=== PATIENT | female | born 1995 ===

== ENCOUNTER 2019-10-30 22:04 | Inpatient (IN) | payer OTHER, SELFPAY ==
[2019-10-31 01:17] VITALS: BMI 22.1
[2019-10-31] MEDS ORDERED: Ondansetron PF 4 MG/2 ML Vial IVP PRN (02:51)
[2019-10-31] MEDS ORDERED: Morphine 4 MG/ML VIAL SLOW IVP PRN (02:51)
--- NOTE | 2019-10-31 03:44 | PDOC.HHP ---
Hospitalist HPI - History of Present Illness mouth pain History of Present Illness: case of an 24y/o female with no pmhx of chronic conditions who comes to hospital transfer from [facility] for an ENT evaluation due to an subperiosteal abscess. patient refers she was on her usual state of health until today when she wake up she had severe swelling and pain on her right lower jaw for which she went to [facility]. there patient had a head ct wich showed and an abscess in the subperiosteal area. dr glynn was called and agreed to see patient as a consumer services consultant for which patient was transfered to this institution for further evaluation and management. patient denies fever chills nause and vomting. Before transfer patient was covid tested and was positive. Hospitalist ROS - Review of Systems All other systems reviewed; all pertinent +/- noted in HPI/Subj - Medication Medications: Active Medications Generic Name Dose Route Start Last Admin Trade Name Freq PRN Reason Stop Dose Admin Morphine Sulfate 4 mg 10/31/19 02:51 10/31/19 03:05 Morphine SLOW IVP 4 mg Q4H PRN Administration Moderate to Severe Pain (6-10) Ondansetron HCl 4 mg 10/31/19 02:51 10/31/19 03:05 Zofran IVP 4 mg Q6H PRN Administration Nausea Hospitalist History - Past Medical History Source: patient - Past Surgical History Past Surgical History: reports: no pertinent history - Family History Family History: reports: no pertinent history - Social History Smoking Status: Current every day smoker Alcohol: reports: Occassional Drugs: reports: none Living Situation: With Family - Exam General Appearance: NAD, awake alert Eye: PERRL, anicteric sclera ENT: normocephalic atraumatic ENT - other findings: r jaw tender to palpation with significant swelling Neck: supple Heart: RRR, no murmur, no gallops Respiratory: CTAB, no wheezes, no rales Gastrointestinal: soft, non-tender, non-distended, normal bowel sounds Extremities: no cyanosis, no clubbing, no edema Skin: normal turgor, no lesions, no rashes Neurological: cranial nerve grossly intact, normal sensation to touch Musculoskeletal: normal tone, normal strength, no muscle wasting Psychiatric: normal affect, normal behavior, A&O x 3 Hospitalist Results - Radiology Interpretation CT scan - head Additional Comment: right pre- mandibular soft tissue swelling secondary to dentral device subperiosteal abscess Hospitalist H&P A/P - Problem (1) Subperiosteal abscess of jaw Code(s): M27.2 - INFLAMMATORY CONDITIONS OF JAWS Status: Acute (2) COVID-19 Code(s): U07.1 - COVID-19 Status: Acute - Plan Plan: 24y/o fem with periosteal abscess transder to ent evaluation subperiosteal abscess - ent dr glynn consulted - zosyn - pain management -ivfs - npo possible drainage tomorrow am - ct consistent with abscess covid 19 - incidental finding - seems to be asymptomatic - isolation protocol started
[2019-10-31] MEDS ORDERED: Sodium Chloride 0.9% 1,000 ML IV SCH (05:15)
[2019-10-31] MEDS: Ketorolac Tromethamine 30 MG/ML VIAL IVP SCH ×4 (05:55→23:40)
[2019-10-31] MEDS: Piperacillin/Tazobactam 3.375 GM in Sodium Chloride 0.9% 100 ML IVPB SCH ×4 (05:56→23:40)
[2019-10-31 06:36] LABS: #Lymphocytes 1.3 thou/uL (1.20-3.40); #Monocytes 0.7 thou/uL (0.11-0.59); #Neutrophils 4.2 thou/uL (1.40-6.50); %Basophils 0.3 % (0.0-1.0); %Eosinophils 0.3 % (0.0-10.0); %Lymphocytes 21.3 % (21.0-51.0); %Monocytes 11.2 % (0.0-10.0); %Neutrophils 66.9 % (42.0-75.0); Hemoglobin 12.3 g/dL (12.0-16.0); Mean Corpuscular HGB CONC 33.3 g/dL (32.0-36.0); Mean Corpuscular Hemoglobin 31.3 pg (27.0-31.0); Mean Platelet Volume 9.7 fL (7.4-10.4); Platelet Count 178 thou/uL (130-400); RBC Distribution Width 11.5 % (11.5-14.5); Red Blood Cell (RBC) Count 3.94 mill/uL (4.20-5.40); White Blood Cell (WBC) Count 6.2 thou/uL (4.8-10.8)
[2019-10-31 07:04] LABS: ALT (SGPT) 8 U/L (8-55); AST (SGOT) 12 U/L (5-34); Albumin 3.7 g/dL (3.5-5.0); Alkaline Phosphatase 66 U/L (40-110); Anion Gap 11 mmol/L (10-20); BUN (Urea Nitrogen) 5 mg/dL (7.0-18.7); Bilirubin, Total 0.2 mg/dL (0.2-1.2); Calc. Creatinine Clearance 104 mL/min (70-130); Calcium 8.7 mg/dL (7.8-10.44); Carbon Dioxide 21 mmol/L (22-29); Chloride 107 mmol/L (98-107); Estimated GFR-MDRD Greater than 90; Glucose 97 mg/dL (70-105); Potassium 3.5 mmol/L (3.5-5.1); Protein, Total 6.7 g/dL (6.0-8.3); Sodium 135 mmol/L (136-145)
[2019-10-31] MEDS ORDERED: Acetaminophen 325 MG TAB PO PRN (09:59)
[2019-10-31] MEDS ORDERED: Senokot S 8.6-50 MG TAB PO PRN (09:59)
[2019-10-31] MEDS ORDERED: Calcium Carbonate 500 MG ChewTAB PO PRN (09:59)
[2019-10-31] MEDS ORDERED: Ondansetron ODT 4 MG TAB PO PRN (09:59)
[2019-10-31] MEDS: Sodium Chloride 0.9% 1,000 ML IV SCH ×2 (10:42→20:33)
[2019-10-31] MEDS: Clindamycin/D5W 600 MG in Premix Bag 1 BAG IVPB SCH ×2 (11:37→18:51)
--- NOTE | 2019-10-31 11:42 | PDOC.HOSPP ---
- Subjective Encounter Date: 10/31/19 - Objective Vital Signs & Weight: Vital Signs (12 hours) Temp Pulse Resp BP Pulse Ox 10/31/19 08:00 98.9 F 64 18 122/66 100 10/31/19 03:32 98 F 84 20 138/77 92 L 10/31/19 01:29 91 L 10/31/19 00:20 97.9 F 84 18 113/73 91 L Weight Weight 129 lb 6.581 oz I&O: 10/30/19 10/31/19 11/01/19 06:59 06:59 06:59 Intake Total 4 Output Total 230 Balance -226 Result Diagrams: 10/31/19 06:08 10/31/19 06:08 Hospitalist ROS - Medication Medications: Active Medications Generic Name Dose Route Start Last Admin Trade Name Freq PRN Reason Stop Dose Admin Piperacillin Sod/Tazobactam 100 mls @ 200 mls/hr 10/31/19 06:00 10/31/19 05: 56 Sod 3.375 gm/ Sodium Chloride IVPB 100 mls Q6HR MARYLU Administration Sodium Chloride 1,000 mls @ 60 mls/hr 10/31/19 05:15 10/31/19 05:55 Normal Saline 0.9% IV 1,000 mls .[id number] MARYLU Administration Clindamycin Phosphate/Dextrose 50 mls @ 100 mls/hr 10/31/19 11:00 10/31/19 11 :37 600 mg/ Device IVPB 50 mls 0300,1100,1900 MARYLU Administration Sodium Chloride 1,000 mls @ 100 mls/hr 10/31/19 10:00 10/31/19 10:42 Normal Saline 0.9% IV Not Given .Q10H MARYLU Ketorolac Tromethamine 30 mg 10/31/19 06:00 10/31/19 05:55 Toradol IVP 11/05/19 06:01 30 mg Q6HR MARYLU Administration Morphine Sulfate 4 mg 10/31/19 02:51 10/31/19 03:05 Morphine SLOW IVP 4 mg Q4H PRN Administration Moderate to Severe Pain (6-10) Ondansetron HCl 4 mg 10/31/19 02:51 10/31/19 03:05 Zofran IVP 4 mg Q6H PRN Administration Nausea
[2019-10-31 12:22] LABS: BHCG - Serum Negative (NEGATIVE); Pregs Control Background? CLEAR/WHITE (CLR/WHITE); Pregs Control Bar Appear? YES (CONTROL BAR)
--- NOTE | 2019-10-31 13:15 | CT ---
EXAM: CT face with contrast HISTORY: Lower right jaw abscess. Right-sided facial swelling for 2 days COMPARISON: None TECHNIQUE: Multiple contiguous axial images were obtained and a CT of the face with contrast. Sagitta l and coronal reformats were performed. FINDINGS: Mild right facial soft tissue swelling is seen. No focal fluid collection is identified. The globes and retrobulbar soft tissues are unremarkable. No facial fractures are identified. The visualized paranasal sinuses are well aerated without evidence of opacification. Bilateral mildly enlarged reactive cervical lymph nodes are seen. The salivary glands show no focal abnormality. The mastoid air cells are well aerated. Visualized intracranial structures are unremarkable. IMPRESSION: No focal abscess identified.
[2019-10-31] MEDS ORDERED: Iopamidol-370 76% 500 ML 1 ML ONE (16:27)
[2019-11-01] MEDS: Clindamycin/D5W 600 MG in Premix Bag 1 BAG IVPB SCH ×2 (04:00→10:47)
[2019-11-01] MEDS: Sodium Chloride 0.9% 1,000 ML IV SCH ×2 (04:07→08:38)
[2019-11-01] MEDS: Ketorolac Tromethamine 30 MG/ML VIAL IVP SCH ×2 (05:38→12:02)
[2019-11-01] MEDS: Piperacillin/Tazobactam 3.375 GM in Sodium Chloride 0.9% 100 ML IVPB SCH (05:39)
[2019-11-01 05:40] LABS: #Lymphocytes 1.5 thou/uL (1.20-3.40); #Monocytes 0.5 thou/uL (0.11-0.59); #Neutrophils 2.4 thou/uL (1.40-6.50); %Eosinophils 0.5 % (0.0-10.0); %Lymphocytes 33.1 % (21.0-51.0); %Monocytes 11.2 % (0.0-10.0); %Neutrophils 54.2 % (42.0-75.0); Hemoglobin 11.8 g/dL (12.0-16.0); Mean Corpuscular HGB CONC 32.7 g/dL (32.0-36.0); Mean Corpuscular Hemoglobin 30.4 pg (27.0-31.0); Mean Corpuscular Volume 93.2 fL (78.0-98.0); Mean Platelet Volume 9.8 fL (7.4-10.4); Platelet Count 177 thou/uL (130-400); RBC Distribution Width 11.2 % (11.5-14.5); Red Blood Cell (RBC) Count 3.88 mill/uL (4.20-5.40); White Blood Cell (WBC) Count 4.5 thou/uL (4.8-10.8)
[2019-11-01 06:07] LABS: ALT (SGPT) 8 U/L (8-55); AST (SGOT) 10 U/L (5-34); Albumin 3.6 g/dL (3.5-5.0); Alkaline Phosphatase 58 U/L (40-110); Anion Gap 12 mmol/L (10-20); BUN (Urea Nitrogen) 7 mg/dL (7.0-18.7); Bilirubin, Total 0.3 mg/dL (0.2-1.2); CRP (Inflammatory) 2.55 mg/dL (= or < 0.5); Calc. Creatinine Clearance 103 mL/min (70-130); Calcium 8.4 mg/dL (7.8-10.44); Carbon Dioxide 22 mmol/L (22-29); Chloride 107 mmol/L (98-107); Estimated GFR-MDRD Greater than 90; Globulin 2.9 g/dL (2.4-3.5); Glucose 79 mg/dL (70-105); Potassium 3.6 mmol/L (3.5-5.1); Protein, Total 6.5 g/dL (6.0-8.3); Sodium 137 mmol/L (136-145)
[2019-11-01] MEDS ORDERED: Saccharomyces boulardii 250 MG CAP PO SCH (09:00)
[2019-11-01 12:10] VITALS: BP 115/78; TEMP 98.6
--- NOTE | 2019-11-01 14:27 | CON ---
DATE OF CONSULTATION: 11/01/2019 HISTORY OF PRESENT ILLNESS: This is a 24-year-old female who was initially seen at an outside hospital due to a right-sided facial cellulitis. At this outside hospital, she was tested positive for COVID. A CT scan of the face was performed and the outside read mentioned a possible subperiosteal abscess in the right mandibular region. I was called by the outside hospital for transfer due to these findings and the patient was subsequently transferred to [facility]. PAST MEDICAL HISTORY: Per hospital records, negative for any significant findings other than recent positive test of COVID. PAST SURGICAL HISTORY: None. FAMILY HISTORY: Noncontributory. SOCIAL HISTORY: Positive for smoking, occasional alcohol. Denies drugs. IMAGING STUDIES: A CT scan of the face with contrast at our hospital shows mild right facial cellulitis with no findings of a drainable fluid collection throughout the head, face, or neck region. The patient does have a periapical pathology associated with multiple teeth, which is consistent with longstanding underlying dental disease. LABORATORY STUDIES: CBC shows a white count of 6.2 yesterday and is trending down to 4.5 today, platelets 177, and neutrophils within normal limits. Chemistry study today within normal limits. ASSESSMENT: 1. A 24-year-old female with right facial cellulitis, likely secondary to odontogenic source without any drainable fluid collections and with improvement on intravenous antibiotics. 2. COVID positive. PLAN: 1. I spoke with Dr. Birmingham this morning and recommended the patient be kept on p.o. Augmentin and Flagyl for the next 10 days in addition to twice daily rinses with Peridex Oral Rinse. 2. The patient is to be given my office number and instructed to call my office for establishment of an outpatient followup appointment for evaluation of dentition for needed extractions to prevent recurrence of this type of facial infection. Job ID: [id number]
[2019-11-01] MEDS ORDERED: metroNIDAZOLE 500 MG TAB PO SCH (15:00)
[2019-11-01] MEDS ORDERED: Amoxicillin/Potassium Clav 875 MG TAB PO SCH (21:00)
--- NOTE | 2019-11-02 11:31 | DIS ---
DATE OF ADMISSION: 10/30/2019 DATE OF DISCHARGE: 11/01/2019 DISCHARGE DISPOSITION: Home. FOLLOWUP: 1. Follow up with primary care physician at [facility] in 1 week. 2. Follow up with oral maxillofacial surgeon, Dr. Andriy Jones in 2 weeks. 3. The patient was seen on the day of discharge. Denies any new complaints. Facial swelling is improving. DISCHARGE MEDICATIONS: 1. Flagyl 500 mg 3 times daily for 10 days. 2. Augmentin 875 mg b.i.d. for 10 days. 3. Chlorhexidine mouth rinse twice daily. 4. Florastor 250 mg daily. BRIEF HOSPITAL COURSE: The patient is a 24-year-old -[place] female, who presented to [facility] with facial swelling. Workup was consistent with suspected mandibular abscess. She was transferred to this facility for oral maxillofacial surgeon evaluation. She was also found to have COVID infection. She was evaluated by Dr. Jones at this facility. The facial bone CT, however, did not show any focal abscess. She needs some teeth extraction, which will be followed by Dr. Jones as outpatient. The right facial cellulitis has significantly improved. FINAL DIAGNOSES: 1. Right facial cellulitis without any abscess, improved. - POA 2. Multiple dental infection. 3. New diagnosis of COVID infection. 4. Tobacco dependence. 5. Hyponatremia. 6. Chronic anemia, suspected due to nutritional deficiency. Significant labs: test was negative. Sodium 135. WBC 6.2 with neutrophil of 66.9. Job ID: [id number] [facility]
== END 2019-11-01 13:30 | disposition home or self-care (01) | DRG 602 ==
LOC: OBSVTOIN 22:10 → T4-B 22:10
PROVIDERS: ADMIT Internal Medicine; ATTEND Internal Medicine
PROC: 8E0ZXY6 Isolation (ICD-10-PCS; principal; 2019-10-31)
DX: L03.211 Cellulitis of face (principal); U07.1 COVID-19; E87.1 Hypo-osmolality and hyponatremia; F17.210 Nicotine dependence, cigarettes, uncomplicated; D53.9 Nutritional anemia, unspecified
CPT/HCPCS: 36415; 70487; 80053; 82728; 84703; 85025; 85379; 86140; 96365; 96375; G0378; J1885; J2270; J2405; J2543; J3490; Q9967